=== PATIENT | female | born 1965 | race Caucasian/White ===

== ENCOUNTER 2016-07-05 09:51 | Outpatient (CLI) | payer OTHER ==
[2016-07-05 11:22] LABS: ALT (SGPT) 18 U/L (0-55); AST (SGOT) 15 U/L (5-34); Alkaline Phosphatase 84 U/L (40-150); Anion Gap 16 mmol/L (10-20); BUN (Urea Nitrogen) 10 mg/dL (7.0-18.7); Bilirubin, Total 0.3 mg/dL (0.2-1.2); Calc. Creatinine Clearance 0 mL/min (70-130); Calcium 9.4 mg/dL (7.8-10.44); Carbon Dioxide 30 mmol/L (22-29); Chloride 97 mmol/L (98-107); Estimated GFR-MDRD 90; Globulin 3.2 g/dL (2.4-3.5); LDL Cholesterol, Calculated 103 mg/dL
[2016-07-05 12:15] LABS: #Basophils 0.1 thou/uL (0.0-0.2); #Eosinphils 0.2 thou/uL (0.0-0.7); #Lymphocytes 2.6 thou/uL (1.20-3.40); #Monocytes 0.6 thou/uL (0.11-0.59); %Basophils 0.9 % (0.0-1.0); %Eosinophils 1.9 % (0.0-10.0); %Monocytes 6.6 % (0.0-10.0); Hematocrit 44.6 % (36.0-47.0); Mean Platelet Volume 8.4 fL (7.4-10.4); Red Blood Cell (RBC) Count 4.73 mill/uL (4.20-5.40); White Blood Cell (WBC) Count 8.3 thou/uL (4.8-10.8)
[2016-07-05 12:33] LABS: Hemoglobin A1c 10.1 % (4.0-6.0)
== END 2016-07-05 09:52 | disposition home or self-care (01) ==
LOC: HPCALD 09:51
PROVIDERS: ATTEND Family Medicine
DX: Z13.6 Encounter for screening for cardiovascular disorders (principal); E11.9 Type 2 diabetes mellitus without complications; I10 Essential (primary) hypertension
CPT/HCPCS: 36415; 80053; 80061; 83036; 85025

== ENCOUNTER 2016-12-31 08:32 | Emergency (ER) | payer OTHER ==
[2016-12-31] MEDS ORDERED: HYDROcodone/Acetaminophen 10/325 mg Tablet ONE (09:05)
== END 2016-12-31 09:28 | disposition home or self-care (01) ==
LOC: BURERS 08:32
DX: G89.29 Other chronic pain (principal); M54.5 Low back pain; E66.9 Obesity, unspecified; I11.0 Hypertensive heart disease with heart failure; I50.9 Heart failure, unspecified; M06.9 Rheumatoid arthritis, unspecified; J44.9 Chronic obstructive pulmonary disease, unspecified; E11.9 Type 2 diabetes mellitus without complications; Z86.73 Personal history of transient ischemic attack (TIA), and cerebral infarction without residual deficits; F17.210 Nicotine dependence, cigarettes, uncomplicated; Z79.899 Other long term (current) drug therapy; Z79.84 Long term (current) use of oral hypoglycemic drugs
CPT/HCPCS: 99283

== ENCOUNTER 2017-01-27 14:14 | Emergency (ER) | payer OTHER | END 2017-01-27 14:42 | disposition home or self-care (01) | LOC: BURERS 14:14 | DX: N32.0 Bladder-neck obstruction (principal); I11.0 Hypertensive heart disease with heart failure; I50.9 Heart failure, unspecified; E11.9 Type 2 diabetes mellitus without complications; M81.0 Age-related osteoporosis without current pathological fracture; M06.9 Rheumatoid arthritis, unspecified; E66.9 Obesity, unspecified; J44.9 Chronic obstructive pulmonary disease, unspecified; F17.210 Nicotine dependence, cigarettes, uncomplicated; Z79.4 Long term (current) use of insulin; Z79.84 Long term (current) use of oral hypoglycemic drugs; Z79.891 Long term (current) use of opiate analgesic; Z79.899 Other long term (current) drug therapy | CPT/HCPCS: 99283 ==

== ENCOUNTER 2017-02-01 15:47 | Emergency (ER) | payer OTHER ==
--- NOTE | 2017-02-01 18:17 | CT ---
CT SOFT TISSUE NECK WITH CONTRAST 02/01/[address] of the neck was performed for evaluation of a left sided palpable abnormality. the patient also presents with dysphagia. There has been a prior left thyroidectomy. Axial slices were acquired , then coronal and sagittal reconstructions were done. An opaque marker was placed over the palpable site of interest. It correlates with the left submandi bular gland. Both submandibular glands are generous in size, though it would be difficult to say ghada t the one on the left is tremendously larger than the right. No true mass, substantial adenopathy or other finding of severe concern was encountered. The prevertebral soft tissues appear normal. The s uperior mediastinum was unremarkable. There were no reasons that would easily explain dysphagia. IMPRESSION: No acute pathological findings. The area of palpable interest appears to be a prominent left submand ibular gland. POS: HOME
== END 2017-02-01 17:13 | disposition home or self-care (01) ==
LOC: BURERS 15:47
DX: R07.0 Pain in throat (principal); E11.9 Type 2 diabetes mellitus without complications; E66.9 Obesity, unspecified; F17.210 Nicotine dependence, cigarettes, uncomplicated; I11.0 Hypertensive heart disease with heart failure; J44.9 Chronic obstructive pulmonary disease, unspecified; I25.2 Old myocardial infarction; I50.9 Heart failure, unspecified; M81.0 Age-related osteoporosis without current pathological fracture; M06.9 Rheumatoid arthritis, unspecified; Z86.73 Personal history of transient ischemic attack (TIA), and cerebral infarction without residual deficits; Z79.84 Long term (current) use of oral hypoglycemic drugs; Z79.4 Long term (current) use of insulin; Z79.899 Other long term (current) drug therapy
CPT/HCPCS: 70492

== ENCOUNTER → 2017-02-07 | Day surgery (SDC) | payer OTHER ==
[2017-02-07 17:38] VITALS: BP 111/59; TEMP 98.2
== END ==
LOC: BUR/OP 12:22
PROVIDERS: ATTEND Family Medicine
DX: Z46.6 Encounter for fitting and adjustment of urinary device (principal); E11.65 Type 2 diabetes mellitus with hyperglycemia; M06.9 Rheumatoid arthritis, unspecified; J44.9 Chronic obstructive pulmonary disease, unspecified; E66.9 Obesity, unspecified; I11.0 Hypertensive heart disease with heart failure; I50.30 Unspecified diastolic (congestive) heart failure; M81.0 Age-related osteoporosis without current pathological fracture; M51.27 Other intervertebral disc displacement, lumbosacral region; I25.2 Old myocardial infarction; I25.10 Atherosclerotic heart disease of native coronary artery without angina pectoris; F17.210 Nicotine dependence, cigarettes, uncomplicated; Z68.43 Body mass index [BMI] 50.0-59.9, adult; Z79.84 Long term (current) use of oral hypoglycemic drugs; Z79.4 Long term (current) use of insulin; Z79.52 Long term (current) use of systemic steroids; Z79.899 Other long term (current) drug therapy; Z88.6 Allergy status to analgesic agent; Z88.0 Allergy status to penicillin; Z88.8 Allergy status to other drugs, medicaments and biological substances; Z91.018 Allergy to other foods; Z98.51 Tubal ligation status; Z90.710 Acquired absence of both cervix and uterus; Z98.890 Other specified postprocedural states; Z86.73 Personal history of transient ischemic attack (TIA), and cerebral infarction without residual deficits
CPT/HCPCS: 51702; 99201; G0463

== ENCOUNTER → 2017-02-26 | Day surgery (SDC) | payer OTHER | LOC: BUR/OP 08:55 | PROVIDERS: ATTEND Family Medicine | DX: Z46.6 Encounter for fitting and adjustment of urinary device (principal); R53.81 Other malaise; M81.0 Age-related osteoporosis without current pathological fracture; E66.01 Morbid (severe) obesity due to excess calories; J44.9 Chronic obstructive pulmonary disease, unspecified; I11.0 Hypertensive heart disease with heart failure; I50.32 Chronic diastolic (congestive) heart failure; I25.2 Old myocardial infarction; I25.10 Atherosclerotic heart disease of native coronary artery without angina pectoris; E89.0 Postprocedural hypothyroidism; F17.210 Nicotine dependence, cigarettes, uncomplicated; E11.42 Type 2 diabetes mellitus with diabetic polyneuropathy; F41.8 Other specified anxiety disorders; R33.9 Retention of urine, unspecified; G89.4 Chronic pain syndrome; Z68.42 Body mass index [BMI] 45.0-49.9, adult; Z79.4 Long term (current) use of insulin; Z79.891 Long term (current) use of opiate analgesic; Z79.899 Other long term (current) drug therapy; Z88.6 Allergy status to analgesic agent; Z88.5 Allergy status to narcotic agent; Z88.0 Allergy status to penicillin; Z88.8 Allergy status to other drugs, medicaments and biological substances; Z91.018 Allergy to other foods; Z99.3 Dependence on wheelchair; Z98.1 Arthrodesis status; Z98.51 Tubal ligation status; Z90.710 Acquired absence of both cervix and uterus; Z98.890 Other specified postprocedural states; Z86.73 Personal history of transient ischemic attack (TIA), and cerebral infarction without residual deficits | CPT/HCPCS: 51701; 99201; G0463 ==

== ENCOUNTER → 2017-03-02 | Day surgery (SDC) | payer OTHER | LOC: BUR/OP 10:36 | PROVIDERS: ATTEND Family Medicine | DX: Z46.6 Encounter for fitting and adjustment of urinary device (principal); R33.9 Retention of urine, unspecified; R53.81 Other malaise; M81.0 Age-related osteoporosis without current pathological fracture; E66.01 Morbid (severe) obesity due to excess calories; J44.9 Chronic obstructive pulmonary disease, unspecified; I11.0 Hypertensive heart disease with heart failure; I50.32 Chronic diastolic (congestive) heart failure; I25.2 Old myocardial infarction; I25.10 Atherosclerotic heart disease of native coronary artery without angina pectoris; E89.0 Postprocedural hypothyroidism; F17.210 Nicotine dependence, cigarettes, uncomplicated; E11.42 Type 2 diabetes mellitus with diabetic polyneuropathy; F41.8 Other specified anxiety disorders; G89.4 Chronic pain syndrome; Z68.42 Body mass index [BMI] 45.0-49.9, adult; Z79.4 Long term (current) use of insulin; Z79.891 Long term (current) use of opiate analgesic; Z79.899 Other long term (current) drug therapy; Z88.6 Allergy status to analgesic agent; Z88.5 Allergy status to narcotic agent; Z88.0 Allergy status to penicillin; Z88.8 Allergy status to other drugs, medicaments and biological substances; Z91.018 Allergy to other foods; Z99.3 Dependence on wheelchair; Z98.1 Arthrodesis status; Z98.51 Tubal ligation status; Z90.710 Acquired absence of both cervix and uterus; Z98.890 Other specified postprocedural states; Z86.73 Personal history of transient ischemic attack (TIA), and cerebral infarction without residual deficits | CPT/HCPCS: 51701; 99201; G0463 ==

== ENCOUNTER 2017-03-03 16:59 | Emergency (ER) | payer OTHER ==
[~2017-03-03 16:59] MED LIST: Iopamidol 370 76% 100 ML VIAL ONE
[2017-03-03] MEDS ORDERED: Fentanyl 100 MCG/2 ML VIAL ONE (17:25)
[2017-03-03] MEDS ORDERED: Ketorolac Tromethamine 30 MG/ML VIAL ONE (17:25)
[2017-03-03 17:40] LABS: #Basophils 0.2 thou/uL (0.0-0.2); #Eosinphils 0.2 thou/uL (0.0-0.7); #Lymphocytes 3.2 thou/uL (1.20-3.40); #Monocytes 1.1 thou/uL (0.11-0.59); #Neutrophils 12.9 thou/uL (1.40-6.50); %Basophils 0.9 % (0.0-1.0); %Eosinophils 1.1 % (0.0-10.0); %Monocytes 6.3 % (0.0-10.0); %Neutrophils 73.7 % (42.0-75.0); Hemoglobin 16.1 g/dL (12.0-16.0); Mean Corpuscular HGB CONC 33.5 g/dL (32.0-36.0); Mean Corpuscular Hemoglobin 29.8 pg (27.0-31.0); Mean Platelet Volume 9.1 fL (7.4-10.4); Platelet Count 257 thou/uL (130-400); RBC Distribution Width 12.9 % (11.5-14.5); Red Blood Cell (RBC) Count 5.41 mill/uL (4.20-5.40); White Blood Cell (WBC) Count 17.6 thou/uL (4.8-10.8)
[2017-03-03 17:52] LABS: ALT (SGPT) 15 U/L (8-55); Albumin 4.1 g/dL (3.5-5.0); Alkaline Phosphatase 104 U/L (40-150); Anion Gap 20 mmol/L (10-20); BUN (Urea Nitrogen) 10 mg/dL (9.8-20.1); Bilirubin, Total 0.6 mg/dL (0.2-1.2); Calc. Creatinine Clearance 0 mL/min (70-130); Calcium 11.4 mg/dL (7.8-10.44); Carbon Dioxide 26 mmol/L (22-29); Chloride 96 mmol/L (98-107); Estimated GFR-MDRD 88; Globulin 4.7 g/dL (2.4-3.5); Glucose 252 mg/dL (70-105); Lipase 93 U/L (8-78); Potassium 4.3 mmol/L (3.5-5.1); Protein, Total 8.8 g/dL (6.0-8.3); Sodium 138 mmol/L (136-145)
[2017-03-03 17:53] LABS: AST (SGOT) 14 U/L (5-34); CKMB 0.4 ng/mL (0-6.6); Troponin I Less than 0.010 ng/mL (< 0.028)
[2017-03-03 18:20] LABS: Bilirubin Small (Negative); Blood, Urine Moderate (Negative); Clarity Cloudy (Clear); Glucose, Urine (Dipstick) Negative (Negative); Leukocyte Small (Negative); Nitrite Negative (Negative); Protein, Urine (Dipstick) > or equal to 300 mg/dL (Neg-Trace); Specific Gravity, Urine 1.015 (1.005-1.030); Urobilinogen 0.2 mg/dL (0.2-1.0); pH, Urine 6.5 (5.0-9.0)
[2017-03-03 18:27] LABS: Bacteria/HPF Rare-Few HPF (None Seen); Crystals/HPF None Seen HPF (Negative); Hyaline Casts/LPF NONE SEEN LPF (0-3 Hyaline); Other Casts/LPF None Seen LPF (0-3 Hyaline); Oval Fat Bodies/HPF None Seen HPF (None Seen); RBC/HPF 21-50 HPF (0-3); Renal Epithelial None Seen HPF (0-3); Sperm/HPF None Seen HPF (None Seen); Squamous Epithelial None Seen HPF (0-3); Transitional Epithelial NONE SEEN HPF (0-3); Trichomonas/HPF None Seen HPF (None Seen); Yeast-All Forms 4+ HPF (None Seen)
--- NOTE | 2017-03-03 18:40 | CT ---
CT ABDOMEN AND PELVIS WITH IV CONTRAST: 03/03/17 HISTORY: Abdominal pain, most severe in the right upper quadrant. FINDINGS: The lung bases are clear. The liver, spleen, adrenal glands and left kidney are normal. There is a n onobstructing 5 mm calculus in the central portion of the right kidney. A tiny cyst is seen in the r ight kidney. No hydroureteronephrosis is seen on either side. No calculi is seen in the ureters or t he urinary bladder. There is a Borjas catheter within the decompressed urinary bladder. There is mild inflammatory change surrounding the head of the pancreas. No calcified gallstones are seen. No free air, free fluid or lymphadenopathy is noted in the abdome n or pelvis. There are vascular calcifications without evidence of aneurysmal dilatation of the abdo rhonda aorta. A neural stimulator device is seen posteriorly in the subcutaneous fat on the right at the level of the upper lumbar spine. There is a screw at L5. The patient is post hysterectomy. There are vascular calcifications without evidence of aneurysmal dilatation of the abdominal aorta. There are degenerative changes in the spine. IMPRESSION: 1. Probable pancreatitis. 2. Nonobstructing 5 mm right renal calculus. POS: [facility]
[2017-03-03] MEDS ORDERED: Famotidine In NaCl 20 mg/50 ml Premix Bag ONE (18:41)
== END 2017-03-03 19:13 | disposition short-term general hospital (02) ==
LOC: BURERS 16:59
DX: K81.0 Acute cholecystitis (principal); K85.90 Acute pancreatitis without necrosis or infection, unspecified; E11.9 Type 2 diabetes mellitus without complications; I11.0 Hypertensive heart disease with heart failure; I50.9 Heart failure, unspecified; E66.9 Obesity, unspecified; J44.9 Chronic obstructive pulmonary disease, unspecified; M81.0 Age-related osteoporosis without current pathological fracture; F17.210 Nicotine dependence, cigarettes, uncomplicated; Z86.73 Personal history of transient ischemic attack (TIA), and cerebral infarction without residual deficits
CPT/HCPCS: 74177; 80053; 81003; 81015; 82553; 83690; 84484; 85025; 87086; 96361; 96365; 96375; A4216; J1170; J1885; J1956; J3010

== ENCOUNTER → 2017-03-12 | Day surgery (SDC) | payer OTHER ==
[2017-03-12 19:03] VITALS: BP 140/88; TEMP 98.9
== END ==
LOC: BUR/OP 18:07
PROVIDERS: ATTEND Family Medicine
DX: Z46.6 Encounter for fitting and adjustment of urinary device (principal); R53.81 Other malaise; E11.9 Type 2 diabetes mellitus without complications; M81.0 Age-related osteoporosis without current pathological fracture; E66.01 Morbid (severe) obesity due to excess calories; J44.9 Chronic obstructive pulmonary disease, unspecified; I11.0 Hypertensive heart disease with heart failure; I50.32 Chronic diastolic (congestive) heart failure; I25.2 Old myocardial infarction; I25.10 Atherosclerotic heart disease of native coronary artery without angina pectoris; E89.0 Postprocedural hypothyroidism; F32.9 Major depressive disorder, single episode, unspecified; F41.9 Anxiety disorder, unspecified; F17.210 Nicotine dependence, cigarettes, uncomplicated; G89.4 Chronic pain syndrome; Z79.2 Long term (current) use of antibiotics; Z79.4 Long term (current) use of insulin; Z79.899 Other long term (current) drug therapy; Z88.6 Allergy status to analgesic agent; Z88.0 Allergy status to penicillin; Z88.8 Allergy status to other drugs, medicaments and biological substances; Z91.018 Allergy to other foods; Z99.3 Dependence on wheelchair; Z98.1 Arthrodesis status; Z98.51 Tubal ligation status; Z90.710 Acquired absence of both cervix and uterus; Z98.890 Other specified postprocedural states; Z87.440 Personal history of urinary (tract) infections; Z86.73 Personal history of transient ischemic attack (TIA), and cerebral infarction without residual deficits
CPT/HCPCS: 51701; 99201; G0463

== ENCOUNTER → 2017-03-20 | Day surgery (SDC) | payer OTHER ==
[2017-03-20 18:51] VITALS: BP 134/93; TEMP 98.3
== END ==
LOC: BUR/OP 10:41
PROVIDERS: ATTEND Family Medicine
DX: R33.9 Retention of urine, unspecified (principal); I11.0 Hypertensive heart disease with heart failure; I50.32 Chronic diastolic (congestive) heart failure; I25.10 Atherosclerotic heart disease of native coronary artery without angina pectoris; I25.2 Old myocardial infarction; J44.9 Chronic obstructive pulmonary disease, unspecified; M81.0 Age-related osteoporosis without current pathological fracture; E11.9 Type 2 diabetes mellitus without complications; F17.210 Nicotine dependence, cigarettes, uncomplicated; E89.0 Postprocedural hypothyroidism; E66.01 Morbid (severe) obesity due to excess calories; Z88.6 Allergy status to analgesic agent; Z88.8 Allergy status to other drugs, medicaments and biological substances; Z91.018 Allergy to other foods; Z79.84 Long term (current) use of oral hypoglycemic drugs; Z79.899 Other long term (current) drug therapy; Z98.51 Tubal ligation status; Z98.1 Arthrodesis status; Z98.890 Other specified postprocedural states; Z90.710 Acquired absence of both cervix and uterus; Z86.73 Personal history of transient ischemic attack (TIA), and cerebral infarction without residual deficits; Z99.3 Dependence on wheelchair
CPT/HCPCS: 51701; 99201; A4353; G0463

== ENCOUNTER 2017-03-28 11:38 | Emergency (ER) | payer OTHER | END 2017-03-28 12:06 | disposition home or self-care (01) | LOC: BURERS 11:38 | DX: Z46.6 Encounter for fitting and adjustment of urinary device (principal); I11.0 Hypertensive heart disease with heart failure; I50.9 Heart failure, unspecified; E11.9 Type 2 diabetes mellitus without complications; M81.0 Age-related osteoporosis without current pathological fracture; M06.9 Rheumatoid arthritis, unspecified; E66.9 Obesity, unspecified; J44.9 Chronic obstructive pulmonary disease, unspecified; I25.2 Old myocardial infarction; F17.210 Nicotine dependence, cigarettes, uncomplicated; Z86.73 Personal history of transient ischemic attack (TIA), and cerebral infarction without residual deficits ==

== ENCOUNTER 2017-04-02 11:40 | Outpatient (CLI) | payer OTHER ==
--- NOTE | 2017-04-02 16:02 | RAD ---
THREE VIEWS LUMBAR SPINE: History: Low back pain. Previous lumbar surgery. Comparison: None. FINDINGS: There is a single screw projecting over the L5 vertebral body. Dorsum column stimulator is identifie d entering the thecal sac at approximately T12-L1 level. There are five lumbar type vertebral bodies . Lumbar spine vertebral body height is maintained. No fracture. Mild loss of disc space height and osteophyte formation. IMPRESSION: 1. Post-surgical changes as above. 2. Mild degenerative changes. POS: [facility]
== END 2017-04-02 11:41 | disposition home or self-care (01) ==
LOC: BURRAD 11:40
PROVIDERS: ATTEND Anesthesiology Pain Medicine
DX: M54.5 Low back pain (principal); M47.896 Other spondylosis, lumbar region; Z98.890 Other specified postprocedural states
CPT/HCPCS: 72100

== ENCOUNTER 2017-04-09 19:33 | Emergency (ER) | payer OTHER ==
[2017-04-09] MEDS ORDERED: Lidocaine 1% w/Epinephrine 1:100K 30 ML VIAL ONE (19:44)
[2017-04-09] MEDS ORDERED: Adacel (T-DAP) 0.5 ML VIAL ONE (19:58)
[2017-04-09] MEDS ORDERED: Sulfameth/Trimethoprim DS 800-160mg TAB ONE (20:07)
[2017-04-09] MEDS ORDERED: Bacitracin Zinc 1 Packet ONE (20:09)
== END 2017-04-09 20:23 | disposition home or self-care (01) ==
LOC: BURERS 19:33
DX: S81.812A Laceration without foreign body, left lower leg, initial encounter (principal); E11.9 Type 2 diabetes mellitus without complications; I11.0 Hypertensive heart disease with heart failure; I50.9 Heart failure, unspecified; J44.9 Chronic obstructive pulmonary disease, unspecified; F17.210 Nicotine dependence, cigarettes, uncomplicated; X58.XXXA Exposure to other specified factors, initial encounter
CPT/HCPCS: 12002; 90471; 90715; J2001

== ENCOUNTER → 2017-04-09 | Day surgery (SDC) | payer OTHER | LOC: BUR/OP 11:21 | PROVIDERS: ATTEND Family Medicine | DX: Z46.6 Encounter for fitting and adjustment of urinary device (principal); E11.9 Type 2 diabetes mellitus without complications; I10 Essential (primary) hypertension; M81.0 Age-related osteoporosis without current pathological fracture; R53.81 Other malaise; E66.01 Morbid (severe) obesity due to excess calories; J44.9 Chronic obstructive pulmonary disease, unspecified; I50.32 Chronic diastolic (congestive) heart failure; I25.10 Atherosclerotic heart disease of native coronary artery without angina pectoris; I25.2 Old myocardial infarction; E89.0 Postprocedural hypothyroidism; F41.8 Other specified anxiety disorders; F17.210 Nicotine dependence, cigarettes, uncomplicated; G89.4 Chronic pain syndrome; Z99.3 Dependence on wheelchair; Z79.2 Long term (current) use of antibiotics; Z79.4 Long term (current) use of insulin; Z79.899 Other long term (current) drug therapy; Z88.6 Allergy status to analgesic agent; Z88.0 Allergy status to penicillin; Z88.5 Allergy status to narcotic agent; Z88.8 Allergy status to other drugs, medicaments and biological substances; Z91.018 Allergy to other foods; Z98.1 Arthrodesis status; Z98.51 Tubal ligation status; Z90.710 Acquired absence of both cervix and uterus; Z98.890 Other specified postprocedural states; Z86.73 Personal history of transient ischemic attack (TIA), and cerebral infarction without residual deficits | CPT/HCPCS: 51701; 99201; G0463 ==

== ENCOUNTER 2017-05-14 15:22 | Outpatient (CLI) | payer OTHER ==
--- NOTE | 2017-05-14 20:45 | CT ---
CT LUMBAR SPINE: Date: 05-14-[address] of the lumbar spine was performed for evaluation of pain. Axial slices were acquired and th en coronal and sagittal reconstructions were done. FINDINGS: There has been a prior surgical procedure with insertion of a screw into the L5 vertebral body anteri humberto. The top of the screw protrudes into the disc space and partially into the inferior endplate of L4 anteriorly. There is loss of the L4-5 disc space as a result. There is slight curvature of the lum bar spine convex left. An incidental finding on the surrounding soft tissues was a small nonobstructi ng calculus in the right kidney. No fracture or dislocation is seen at any lumbar level. The patient has an epidural stimulator in [facility] that enters about the T12-L1 level and ascends from there. Findings by level follow: T11-12: No acute findings. There is some scarring in the right lower lobe medially at this level. T12-L1: No acute findings. L1-2: Anterior and lateral osteophytes that do not involve the spinal canal. There is no central pearl l or foraminal stenosis. L2-3: Minimal concentric bulge of the disc without focal herniation. L3-4: There is some mild crowding of the thecal sac due to mild concentric disc bulge, mild ligamento us and facet hypertrophy. No foraminal stenosis was seen. L4-5: Probably some slight foraminal stenosis on the right side. No central canal stenosis. Degenerat ed disc at this level. L5-S1: No acute findings. Some mild facet arthritis is present. IMPRESSION: Degenerative and post-surgical changes as noted above. No findings that appear acute. POS: HOME
== END 2017-05-14 15:23 | disposition home or self-care (01) ==
LOC: BURCT 15:22
PROVIDERS: ATTEND Anesthesiology Pain Medicine
DX: M96.1 Postlaminectomy syndrome, not elsewhere classified (principal); M62.830 Muscle spasm of back; M47.26 Other spondylosis with radiculopathy, lumbar region; G89.4 Chronic pain syndrome
CPT/HCPCS: 72131

== ENCOUNTER 2017-06-25 20:47 | Emergency (ER) | payer OTHER ==
[2017-06-25 22:01] LABS: Bilirubin Negative (Negative); Blood, Urine Large (Negative); Clarity Slightly Cloudy (Clear); Glucose, Urine (Dipstick) Negative (Negative); Leukocyte Small (Negative); Nitrite Negative (Negative); Protein, Urine (Dipstick) 100 mg/dL (Neg-Trace); Urobilinogen 0.2 mg/dL (0.2-1.0); pH, Urine 8.5 (5.0-9.0)
[2017-06-25 22:07] LABS: RBC/HPF GREATER THAN 50-TNTC HPF (0-3)
[2017-06-25 22:08] LABS: Bacteria/HPF 1+ HPF (None Seen); Squamous Epithelial None Seen HPF (0-3)
== END 2017-06-25 22:00 | disposition home or self-care (01) ==
LOC: BURERS 20:47
DX: T83.091A Other mechanical complication of indwelling urethral catheter, initial encounter (principal); I11.0 Hypertensive heart disease with heart failure; I50.9 Heart failure, unspecified; E11.9 Type 2 diabetes mellitus without complications; M81.0 Age-related osteoporosis without current pathological fracture; M06.9 Rheumatoid arthritis, unspecified; E66.9 Obesity, unspecified; J44.9 Chronic obstructive pulmonary disease, unspecified; I25.2 Old myocardial infarction; F17.210 Nicotine dependence, cigarettes, uncomplicated; Z86.73 Personal history of transient ischemic attack (TIA), and cerebral infarction without residual deficits
CPT/HCPCS: 51702; 81003; 81015; 87077; 87086

== ENCOUNTER 2017-11-19 12:54 | Emergency (ER) | payer OTHER | END 2017-11-19 13:30 | disposition home or self-care (01) | LOC: BURERS 12:54 | DX: T83.038A Leakage of other urinary catheter, initial encounter (principal); E11.9 Type 2 diabetes mellitus without complications; I11.0 Hypertensive heart disease with heart failure; I50.9 Heart failure, unspecified; M81.0 Age-related osteoporosis without current pathological fracture; E66.9 Obesity, unspecified; J44.9 Chronic obstructive pulmonary disease, unspecified; Z86.73 Personal history of transient ischemic attack (TIA), and cerebral infarction without residual deficits; I25.2 Old myocardial infarction; F17.210 Nicotine dependence, cigarettes, uncomplicated | CPT/HCPCS: 99283 ==

== ENCOUNTER 2018-03-01 12:49 | Outpatient (CLI) | payer OTHER ==
--- NOTE | 2018-03-02 07:23 | RAD ---
LEFT HIP: DATE: 03/01/2018. FINDINGS: No fracture, dislocation, or joint space narrowing was seen. The articular surfaces are smooth. IMPRESSION: No acute findings. POS: HOME
== END 2018-03-01 12:50 | disposition home or self-care (01) ==
LOC: BURRAD 12:49
PROVIDERS: ATTEND Anesthesiology Pain Medicine
DX: M25.552 Pain in left hip (principal)

== ENCOUNTER 2018-04-26 13:45 | Emergency (ER) | payer OTHER | END 2018-04-26 13:58 | disposition home or self-care (01) | LOC: BURERS 13:45 | DX: Z46.6 Encounter for fitting and adjustment of urinary device (principal); I10 Essential (primary) hypertension; M06.9 Rheumatoid arthritis, unspecified; I25.2 Old myocardial infarction; F17.210 Nicotine dependence, cigarettes, uncomplicated; Z86.73 Personal history of transient ischemic attack (TIA), and cerebral infarction without residual deficits | CPT/HCPCS: 99283 ==

== ENCOUNTER 2018-08-13 14:21 | Emergency (ER) | payer OTHER | END 2018-08-13 14:56 | disposition home or self-care (01) | LOC: BURERS 14:21 | DX: T83.038A Leakage of other urinary catheter, initial encounter (principal); E11.9 Type 2 diabetes mellitus without complications; M06.9 Rheumatoid arthritis, unspecified; E66.9 Obesity, unspecified; I11.0 Hypertensive heart disease with heart failure; I25.2 Old myocardial infarction; I50.9 Heart failure, unspecified; F17.210 Nicotine dependence, cigarettes, uncomplicated; Z86.73 Personal history of transient ischemic attack (TIA), and cerebral infarction without residual deficits | CPT/HCPCS: 99283 ==

== ENCOUNTER 2018-11-07 13:39 | Emergency (ER) | payer OTHER ==
[2018-11-07] MEDS ORDERED: Iopamidol 370 76% 100 ML VIAL ONE (14:01)
[2018-11-07 14:08] LABS: #Basophils 0.1 thou/uL (0.0-0.2); #Eosinphils 0.1 thou/uL (0.0-0.7); #Lymphocytes 2.7 thou/uL (1.20-3.40); #Monocytes 0.7 thou/uL (0.11-0.59); %Basophils 1.2 % (0.0-1.0); %Eosinophils 1.4 % (0.0-10.0); %Lymphocytes 31.8 % (21.0-51.0); %Monocytes 7.8 % (0.0-10.0); %Neutrophils 57.7 % (42.0-75.0); Hemoglobin 13.9 g/dL (12.0-16.0); Mean Corpuscular HGB CONC 31.8 g/dL (32.0-36.0); Mean Corpuscular Hemoglobin 28.9 pg (27.0-31.0); Mean Platelet Volume 8.6 fL (7.4-10.4); Platelet Count 194 thou/uL (130-400); RBC Distribution Width 13.7 % (11.5-14.5); Red Blood Cell (RBC) Count 4.82 mill/uL (4.20-5.40); White Blood Cell (WBC) Count 8.6 thou/uL (4.8-10.8)
[2018-11-07] MEDS ORDERED: Fentanyl 100 MCG/2 ML VIAL ONE (14:09)
[2018-11-07 14:13] LABS: Bilirubin Negative (Negative); Blood, Urine Large (Negative); Clarity Turbid (Clear); Glucose, Urine (Dipstick) >=1000 mg/dL (Negative); Leukocyte Small (Negative); Nitrite Positive (Negative); Protein, Urine (Dipstick) 100 mg/dL (Neg-Trace); Specific Gravity, Urine 1.025 (1.005-1.030); Urobilinogen 0.2 mg/dL (0.2-1.0)
[2018-11-07 14:21] LABS: Bacteria/HPF 4+ HPF (None Seen); Renal Epithelial None Seen HPF (0-3); Squamous Epithelial None Seen HPF (0-3); Transitional Epithelial NONE SEEN HPF (0-3)
[2018-11-07 14:22] LABS: Crystals/HPF 2+ AMORPH URATES HPF (Negative); Hyaline Casts/LPF NONE SEEN LPF (0-3 Hyaline); Other Casts/LPF None Seen LPF (0-3 Hyaline); Trichomonas/HPF None Seen HPF (None Seen); Yeast-All Forms None Seen HPF (None Seen)
[2018-11-07 14:26] LABS: ALT (SGPT) 17 U/L (8-55); AST (SGOT) 13 U/L (5-34); Albumin 4.1 g/dL (3.5-5.0); Alkaline Phosphatase 85 U/L (40-150); Anion Gap 17 mmol/L (10-20); BUN (Urea Nitrogen) 15 mg/dL (9.8-20.1); Bilirubin, Total 0.3 mg/dL (0.2-1.2); Calc. Creatinine Clearance 0 mL/min (70-130); Calcium 10.6 mg/dL (7.8-10.44); Carbon Dioxide 23 mmol/L (22-29); Chloride 102 mmol/L (98-107); Estimated GFR-MDRD 85; Globulin 3.3 g/dL (2.4-3.5); Glucose 267 mg/dL (70-105); Lipase 13 U/L (8-78); Potassium 4.1 mmol/L (3.5-5.1); Protein, Total 7.4 g/dL (6.0-8.3); Sodium 138 mmol/L (136-145)
--- NOTE | 2018-11-07 14:48 | CT ---
CT Abdomen Pelvis W Con History: Right lower quadrant pain Comparison: CT abdomen and pelvis 2017 Findings: There is abnormal thickening of the skin and the inferior margin of the right breast. The l nancy bases are clear. No pericardial effusion. There is right hydroureteronephrosis due to the tip of the suprapubic catheter lodged within the dist al ureter has passed ureterovesicular junction 3-4 mm. No dilated loops of large or small bowel. Left kidney is unremarkable. Aortoiliac contour is normal. No retroperitoneal periaortic adenopathy. Liver and gallbladder are normal as well as the pancreas and adrenal glands. No acute osseous abnorma lity. Impression: 1. The suprapubic catheter tip is lodged in the right distal ureter causing moderate right hydrourete ronephrosis. Recommend retrograde instillation of saline through the urinary bladder to decompress the tip from the ureterovesicular junction. 2. Abnormal skin and subcutaneous fat thickening inferior margin the right breast. Clinical correlati on advised. Dynastic mammogram may be beneficial in this patient. Findings discussed with ordering provider at 2:42 PM.
== END 2018-11-07 15:09 | disposition home or self-care (01) ==
LOC: BURERS 13:39
DX: T83.091A Other mechanical complication of indwelling urethral catheter, initial encounter (principal); E11.9 Type 2 diabetes mellitus without complications; I11.0 Hypertensive heart disease with heart failure; I50.9 Heart failure, unspecified; M81.0 Age-related osteoporosis without current pathological fracture; J44.9 Chronic obstructive pulmonary disease, unspecified; Z86.73 Personal history of transient ischemic attack (TIA), and cerebral infarction without residual deficits; I25.2 Old myocardial infarction; F17.210 Nicotine dependence, cigarettes, uncomplicated; Z79.4 Long term (current) use of insulin; Z79.899 Other long term (current) drug therapy
CPT/HCPCS: 36415; 74177; 80053; 81003; 81015; 83605; 83690; 85025; 87077; 87086; 87186; 96374; J3010; Q9967

== ENCOUNTER 2018-12-23 19:08 | Emergency (ER) | payer OTHER ==
[2018-12-23] MEDS ORDERED: Adacel (T-DAP) 0.5 ML SYRINGE ONE (19:29)
[2018-12-23] MEDS ORDERED: Sulfameth/Trimethoprim DS 800-160mg TAB ONE (19:51)
== END 2018-12-23 21:07 | disposition home or self-care (01) ==
LOC: BURERS 19:08
DX: S80.861A Insect bite (nonvenomous), right lower leg, initial encounter (principal); E11.9 Type 2 diabetes mellitus without complications; I11.0 Hypertensive heart disease with heart failure; I50.9 Heart failure, unspecified; M81.0 Age-related osteoporosis without current pathological fracture; E66.9 Obesity, unspecified; J44.9 Chronic obstructive pulmonary disease, unspecified; Z86.73 Personal history of transient ischemic attack (TIA), and cerebral infarction without residual deficits; I25.2 Old myocardial infarction; F17.210 Nicotine dependence, cigarettes, uncomplicated; Z79.899 Other long term (current) drug therapy; Z79.84 Long term (current) use of oral hypoglycemic drugs; Z79.4 Long term (current) use of insulin; W57.XXXA Bitten or stung by nonvenomous insect and other nonvenomous arthropods, initial encounter
CPT/HCPCS: 87070; 87077; 87186; 87205; 90471; 90715

== ENCOUNTER 2018-12-25 18:16 | Emergency (ER) | payer OTHER ==
[2018-12-25] MEDS ORDERED: HYDROcodone/Acetaminophen 10/325 mg Tablet ONE (18:46)
--- NOTE | 2018-12-26 07:27 | RAD ---
LEFT HIP 2 VIEWS: Date: 12/25/18 Comparison made with a 03/01/18 study. There has been no adverse interval change. No fracture, dislocation, or joint space narrowing seen. T he articular surfaces are smooth. IMPRESSION: No acute findings. POS: HOME
== END 2018-12-25 19:35 | disposition home or self-care (01) ==
LOC: BURERS 18:16
DX: S73.102A Unspecified sprain of left hip, initial encounter (principal); I10 Essential (primary) hypertension; E11.9 Type 2 diabetes mellitus without complications; M81.0 Age-related osteoporosis without current pathological fracture; E66.9 Obesity, unspecified; J44.9 Chronic obstructive pulmonary disease, unspecified; Z86.73 Personal history of transient ischemic attack (TIA), and cerebral infarction without residual deficits; I25.2 Old myocardial infarction; F17.210 Nicotine dependence, cigarettes, uncomplicated; Z79.4 Long term (current) use of insulin; Z79.899 Other long term (current) drug therapy; W05.0XXA Fall from non-moving wheelchair, initial encounter

== ENCOUNTER 2019-03-05 19:44 | Emergency (ER) | payer OTHER ==
[2019-03-05] MEDS ORDERED: Fentanyl 100 MCG/2 ML VIAL ONE ×2 (20:07→22:19)
[2019-03-05 20:15] LABS: Bilirubin Negative (Negative); Blood, Urine Large (Negative); Clarity Turbid (Clear); Glucose, Urine (Dipstick) >=1000 mg/dL (Negative); Leukocyte Small (Negative); Nitrite Negative (Negative); Protein, Urine (Dipstick) > or equal to 300 mg/dL (Neg-Trace); Urobilinogen 0.2 mg/dL (Less than 2)
[2019-03-05 20:16] LABS: Bacteria/HPF 4+ HPF (None Seen); Broad Cast None Seen LPF (None Seen); Cellular Cast None Seen LPF (None Seen); Epithelial Cast None Seen LPF (None Seen); Fatty Cast None Seen LPF (None Seen); Mucous/LPF None Seen LPF (<2+); Other Casts None Seen LPF (None Seen); Oval Fat Bodies/HPF None Seen HPF (None Seen); Red Blood Cell Cast None Seen LPF (None Seen); Renal Epithelial None Seen HPF (None Seen); Sperm/HPF None Seen HPF (None Seen); Squamous Epithelial None Seen HPF (0-3); Transitional Epithelial None Seen HPF (None Seen); Trichomonas/HPF None Seen HPF (None Seen); Waxy Cast None Seen LPF (None Seen); White Blood Cell Cast None Seen LPF (None Seen); Yeast-Budding None Seen HPF (None Seen); Yeast-Hyphae None Seen HPF (None Seen)
[2019-03-05 20:19] LABS: Calcium Oxalate Crystals None Seen HPF (None Seen); Triple Phosphate Crystal None Seen HPF (None Seen); Unclassified Crystals 4+ HPF (None Seen)
--- NOTE | 2019-03-05 20:38 | RAD ---
PORTABLE CHEST: 03/05/19 Comparison is made with the immediate prior study of 01/13/17 as well as an older film of 07/09/12. The heart is borderline enlarged but no different than before. There is no congestive change or large pleural effusion. No lobar infiltrate was seen. Mild prominence of the right hilum seems no differen t than prior studies. IMPRESSION: No acute findings. POS: HOME
[2019-03-05 21:28] LABS: #Basophils 0.1 thou/uL (0.0-0.2); #Eosinphils 0.3 thou/uL (0.0-0.7); #Lymphocytes 2.3 thou/uL (1.20-3.40); #Monocytes 0.9 thou/uL (0.11-0.59); %Basophils 0.8 % (0.0-1.0); %Eosinophils 2.2 % (0.0-10.0); %Lymphocytes 18.3 % (21.0-51.0); %Monocytes 7.2 % (0.0-10.0); %Neutrophils 71.4 % (42.0-75.0); Mean Corpuscular HGB CONC 32.1 g/dL (32.0-36.0); Mean Corpuscular Hemoglobin 28.9 pg (27.0-31.0); Mean Corpuscular Volume 90.2 fL (78.0-98.0); Mean Platelet Volume 8.5 fL (7.4-10.4); Platelet Count 210 thou/uL (130-400); RBC Distribution Width 13.4 % (11.5-14.5); Red Blood Cell (RBC) Count 4.48 mill/uL (4.20-5.40); White Blood Cell (WBC) Count 12.6 thou/uL (4.8-10.8)
[2019-03-05 21:44] LABS: ALT (SGPT) 17 U/L (8-55); AST (SGOT) 15 U/L (5-34); Albumin 3.7 g/dL (3.5-5.0); Alkaline Phosphatase 100 U/L (40-110); Anion Gap 17 mmol/L (10-20); BUN (Urea Nitrogen) 12 mg/dL (9.8-20.1); Bilirubin, Total 0.2 mg/dL (0.2-1.2); Calc. Creatinine Clearance 0 mL/min (70-130); Calcium 10.3 mg/dL (7.8-10.44); Carbon Dioxide 30 mmol/L (22-29); Chloride 96 mmol/L (98-107); Estimated GFR-MDRD 82; Globulin 4.2 g/dL (2.4-3.5); Glucose 283 mg/dL (70-105); Potassium 4.1 mmol/L (3.5-5.1); Protein, Total 7.9 g/dL (6.0-8.3); Sodium 139 mmol/L (136-145)
== END 2019-03-05 23:55 | disposition short-term general hospital (02) ==
LOC: BURERS 19:44
DX: N12 Tubulo-interstitial nephritis, not specified as acute or chronic (principal); J44.9 Chronic obstructive pulmonary disease, unspecified; E11.9 Type 2 diabetes mellitus without complications; I11.0 Hypertensive heart disease with heart failure; I50.9 Heart failure, unspecified; I25.2 Old myocardial infarction; F17.210 Nicotine dependence, cigarettes, uncomplicated; Z79.4 Long term (current) use of insulin; Z79.899 Other long term (current) drug therapy
CPT/HCPCS: 71045; 80053; 81003; 81015; 83605; 85025; 87040; 87077; 87086; 87186; 94640; 94760; 96365; 96366; 96375; 96376; J1956; J3010; J7620

== ENCOUNTER 2020-01-20 13:49 | Outpatient (CLI) | payer OTHER ==
--- NOTE | 2020-01-20 20:57 | RAD ---
RIGHT HIP TWO VIEWS: 01/20/20 No fracture, dislocation, or joint space narrowing was seen. The articular surfaces are smooth. A pig tail catheter is seen over the midline of the lower pelvis that may be a ureteral stent or similar ob ject. IMPRESSION: No acute findings in the hip. POS: HOME
== END 2020-01-20 13:50 | disposition home or self-care (01) ==
LOC: BURRAD 13:49
PROVIDERS: ATTEND Nurse Practitioner Family
DX: M25.551 Pain in right hip (principal)

== ENCOUNTER 2020-05-28 11:32 | Emergency (ER) | payer OTHER ==
[2020-05-28 12:20] LABS: #Basophils 0.1 thou/uL (0.0-0.2); #Eosinphils 0.3 thou/uL (0.0-0.7); #Monocytes 0.6 thou/uL (0.11-0.59); #Neutrophils 6.2 thou/uL (1.40-6.50); %Basophils 0.8 % (0.0-1.0); %Eosinophils 2.9 % (0.0-10.0); %Lymphocytes 21.6 % (21.0-51.0); %Monocytes 6.6 % (0.0-10.0); %Neutrophils 68.2 % (42.0-75.0); Hemoglobin 13.4 g/dL (12.0-16.0); Mean Corpuscular HGB CONC 32.6 g/dL (32.0-36.0); Mean Corpuscular Hemoglobin 29.6 pg (27.0-31.0); Mean Corpuscular Volume 90.9 fL (78.0-98.0); Mean Platelet Volume 8.9 fL (7.4-10.4); Platelet Count 269 thou/uL (130-400); RBC Distribution Width 13.8 % (11.5-14.5); Red Blood Cell (RBC) Count 4.52 mill/uL (4.20-5.40); White Blood Cell (WBC) Count 9.1 thou/uL (4.8-10.8)
[2020-05-28 12:30] LABS: Bilirubin Negative (Negative); Blood, Urine Moderate (Negative); Clarity Cloudy (Clear); Glucose, Urine (Dipstick) Negative (Negative); Ketone, Urine Negative (Negative); Leukocyte Large (Negative); Nitrite Positive (Negative); Protein, Urine (Dipstick) 100 mg/dL (Neg-Trace); Specific Gravity, Urine 1.025 (1.005-1.030); Urobilinogen 0.2 mg/dL (Less than 2)
[2020-05-28] MEDS ORDERED: Fentanyl 100 MCG/2 ML VIAL ONE (12:31)
[2020-05-28 12:34] LABS: Bacteria/HPF 4+ HPF (None Seen); Mucous/LPF 1+ LPF (<2+); Squamous Epithelial 0-3 HPF (0-3); WBC/HPF Greater Than 50 HPF (0-3)
[2020-05-28 12:40] LABS: ALT (SGPT) 19 U/L (8-55); AST (SGOT) 14 U/L (5-34); Albumin 3.7 g/dL (3.5-5.0); Alkaline Phosphatase 102 U/L (40-110); Anion Gap 18 mmol/L (10-20); BUN (Urea Nitrogen) 17 mg/dL (9.8-20.1); Bilirubin, Total 0.2 mg/dL (0.2-1.2); Calc. Creatinine Clearance 0 mL/min (70-130); Calcium 9.7 mg/dL (7.8-10.44); Carbon Dioxide 26 mmol/L (22-29); Chloride 98 mmol/L (98-107); Globulin 3.6 g/dL (2.4-3.5); Glucose 221 mg/dL (70-105); Lipase 23 U/L (8-78); Potassium 4.3 mmol/L (3.5-5.1); Protein, Total 7.3 g/dL (6.0-8.3); Sodium 138 mmol/L (136-145)
--- NOTE | 2020-05-28 14:30 | RAD ---
CHEST TWO VIEWS: 05/28/20 Comparison is made with an 04/10/19 study from [facility]. The heart is borderline in size but similar to before. There is no congestive change or pleural effus ion. There is some minimal linear streaking in the right base that I do not see on the prior study. T here was some streaking in the left lower chest before that is not present today. The upper lobes are clear. A Mediport catheter remains in place as before. An epidural stimulator is noted posteriorly. IMPRESSION: Minimal streaking in the right base of uncertain significance. The chest actually is improved in appe arance since the prior study. POS: HOME
--- NOTE | 2020-05-28 14:37 | CT ---
CT ABDOMEN AND PELVIS WITHOUT CONTRAST: 05/28/20 The lung bases show some linear streaking in the right lower lobe and an equivocal area of scarring o r minimal infiltrate in the lingula on the left. The latter is only seen on the top most slice so is not fully evaluated. More than likely these findi ngs are benign in nature, with the linear right lower lobe findings being some minor atelectasis. Nev ertheless, I would note that I have seen a few patients present with some minimal findings just like this and upper abdominal pain, and then develop respiratory symptoms associated with COVID several da ys later. While probably not the case here, that should be kept in mind, depending upon her progressi on of symptoms. The liver, spleen, pancreas, adrenal glands, and abdominal aorta showed no acute findings within the limitations of a noncontrast study. The gallbladder is mildly generous in size measuring about 9 cm i n length, but it was on the prior study as well. No wall thickening or inflammatory change is seen ar ound it. There is no hydronephrosis in the right kidney as before. A ureteral stent is present on the left with good decompression of the left kidney. The bowel shows no dilation, wall thickening, or inflammatory change in or around it. The appendix wa s identified and appears normal. There is no free air or free fluid. No GI tract findings in the uppe r abdomen were appreciated to explain epigastric pain. CT of the pelvis shows no pelvic masses, fluid collections, or inflammatory changes. The patient's ne phrostomy tube and left ureteral stent is noted, as well as epidural stimulator leads in the spine. IMPRESSION: 1. No acute abdominal or pelvic findings to explain epigastric pain. 2. Gallbladder is somewhat long but not really different in length than the prior study. Probably not significant. 3. No evidence of hydronephrosis. Left ureteral stent/nephrostomy appears to be working. 4. Linear atelectasis versus early infiltrate in the right lower lobe. Equivocal patch in the lingula . See comments above. Findings discussed with Dr. Spaulding at 1404 on 05/28/20. POS: HOME
[2020-05-29 18:25] LABS: SARS-CoV-2 MS2 Positive; SARS-CoV-2 N Gene Negative; SARS-CoV-2 S Gene Negative; SARS-CoV-2 by NAA Not Detected (NotDetected); SARS-CoV-2 orf1ab Negative
== END 2020-05-28 14:15 | disposition home or self-care (01) ==
LOC: BURERS 11:32
DX: R10.13 Epigastric pain (principal); R11.0 Nausea; Z20.828 Contact with and (suspected) exposure to other viral communicable diseases; I25.2 Old myocardial infarction; I50.9 Heart failure, unspecified; E11.9 Type 2 diabetes mellitus without complications; I11.0 Hypertensive heart disease with heart failure; M06.9 Rheumatoid arthritis, unspecified; J44.9 Chronic obstructive pulmonary disease, unspecified; E66.9 Obesity, unspecified; F17.210 Nicotine dependence, cigarettes, uncomplicated; Z86.73 Personal history of transient ischemic attack (TIA), and cerebral infarction without residual deficits; Z79.899 Other long term (current) drug therapy
CPT/HCPCS: 36415; 71046; 74176; 80053; 81003; 81015; 83605; 83690; 84484; 85025; 87040; 87077; 87086; 87186; 87635; 93005; 94760; 96374; J3010; U0003

== ENCOUNTER 2020-06-30 12:13 | Emergency (ER) | payer OTHER ==
[2020-06-30] MEDS ORDERED: HYDROcodone/Acetaminophen 10/325 mg Tablet ONE (13:06)
== END 2020-06-30 13:30 | disposition home or self-care (01) ==
LOC: BURERS 12:13
DX: S63.501A Unspecified sprain of right wrist, initial encounter (principal); S70.00XA Contusion of unspecified hip, initial encounter; M47.816 Spondylosis without myelopathy or radiculopathy, lumbar region; I11.0 Hypertensive heart disease with heart failure; I50.9 Heart failure, unspecified; I25.10 Atherosclerotic heart disease of native coronary artery without angina pectoris; I25.2 Old myocardial infarction; M06.9 Rheumatoid arthritis, unspecified; E66.9 Obesity, unspecified; J44.9 Chronic obstructive pulmonary disease, unspecified; Z86.73 Personal history of transient ischemic attack (TIA), and cerebral infarction without residual deficits; F17.210 Nicotine dependence, cigarettes, uncomplicated; Z79.899 Other long term (current) drug therapy; W18.30XA Fall on same level, unspecified, initial encounter
CPT/HCPCS: 72131

== ENCOUNTER 2020-12-13 11:51 | Outpatient (CLI) | payer OTHER | END 2020-12-13 11:52 | disposition home or self-care (01) | LOC: BURRAD 11:51 | PROVIDERS: ATTEND Pain Medicine Interventional Pain Medicine | DX: M25.551 Pain in right hip (principal); M16.12 Unilateral primary osteoarthritis, left hip ==

== ENCOUNTER 2021-02-08 08:27 | Outpatient (CLI) | payer OTHER | END 2021-02-08 08:28 | disposition home or self-care (01) | LOC: BURCT 08:27 | PROVIDERS: ATTEND Nurse Practitioner Family | DX: M96.1 Postlaminectomy syndrome, not elsewhere classified (principal) | CPT/HCPCS: 72131 ==

== ENCOUNTER 2021-09-29 08:50 | Emergency (ER) | payer OTHER ==
[2021-09-29 10:15] LABS: #Basophils 0.1 thou/uL (0.0-0.2); #Eosinphils 0.1 thou/uL (0.0-0.7); #Lymphocytes 1.2 thou/uL (1.20-3.40); #Neutrophils 8.8 thou/uL (1.40-6.50); %Basophils 0.6 % (0.0-1.0); %Eosinophils 0.6 % (0.0-10.0); %Lymphocytes 10.6 % (21.0-51.0); %Monocytes 8.6 % (0.0-10.0); %Neutrophils 79.6 % (42.0-75.0); Hemoglobin 13.7 g/dL (12.0-16.0); Mean Corpuscular Hemoglobin 29.1 pg (27.0-31.0); Mean Corpuscular Volume 90.9 fL (78.0-98.0); Mean Platelet Volume 9.1 fL (7.4-10.4); Platelet Count 202 thou/uL (130-400); RBC Distribution Width 14.5 % (11.5-14.5)
[2021-09-29 10:38] LABS: ALT (SGPT) 15 U/L (8-55); AST (SGOT) 18 U/L (5-34); Albumin 3.3 g/dL (3.5-5.0); Alkaline Phosphatase 104 U/L (40-110); Anion Gap 18 mmol/L (10-20); BUN (Urea Nitrogen) 26 mg/dL (9.8-20.1); Bilirubin, Total 0.5 mg/dL (0.2-1.2); Calc. Creatinine Clearance 0 mL/min (70-130); Calcium 9.4 mg/dL (7.8-10.44); Carbon Dioxide 26 mmol/L (22-29); Chloride 100 mmol/L (98-107); Glucose 173 mg/dL (70-105); Protein, Total 7.3 g/dL (6.0-8.3); Sodium 140 mmol/L (136-145)
[2021-09-29] MEDS ORDERED: Morphine 4 MG/ML VIAL ONE (10:51)
[2021-09-29 11:35] LABS: Clarity Cloudy (Clear)
[2021-09-29 11:41] LABS: Leukocyte Unable to Interpret (Negative); Nitrite Unable to Interpret (Negative)
[2021-09-29 11:42] LABS: Bilirubin Unable to Interpret (Negative); Blood, Urine Unable to Interpret (Negative); Glucose, Urine (Dipstick) Unable to Interpret mg/dL (Negative); Ketone, Urine Unable to Interpret mg/dL (Negative); Protein, Urine (Dipstick) Unable to Interpret mg/dL (Neg-Trace)
[2021-09-29 11:45] LABS: WBC/HPF 21-50 HPF (0-3)
[2021-09-29 11:46] LABS: Bacteria/HPF 3+ HPF (None Seen)
[2021-09-29] MEDS ORDERED: Sodium Chloride 0.9% 100 ML ONE (12:24)
[2021-09-29] MEDS ORDERED: cefTRIAXone\\ROCEPHIN 1 GM VIAL ONE (12:24)
== END 2021-09-29 13:03 | disposition home or self-care (01) ==
LOC: BURERS 08:50
DX: M25.551 Pain in right hip (principal); M25.561 Pain in right knee; N39.0 Urinary tract infection, site not specified; I11.0 Hypertensive heart disease with heart failure; I50.9 Heart failure, unspecified; I25.2 Old myocardial infarction; E11.9 Type 2 diabetes mellitus without complications; M19.90 Unspecified osteoarthritis, unspecified site; J44.9 Chronic obstructive pulmonary disease, unspecified; M06.9 Rheumatoid arthritis, unspecified; F17.210 Nicotine dependence, cigarettes, uncomplicated; E66.9 Obesity, unspecified; W19.XXXA Unspecified fall, initial encounter; Z68.45 Body mass index [BMI] 70 or greater, adult; Z86.73 Personal history of transient ischemic attack (TIA), and cerebral infarction without residual deficits
CPT/HCPCS: 36415; 71045; 80053; 81003; 81015; 82550; 83605; 83880; 84484; 85025; 87086; 93005; 96365; 96375; J0696; J2270; J3490

== ENCOUNTER 2021-10-13 12:51 | Emergency (ER) | payer OTHER ==
[2021-10-13 13:24] LABS: #Basophils 0.1 thou/uL (0.0-0.2); #Eosinphils 0.2 thou/uL (0.0-0.7); #Lymphocytes 1.9 thou/uL (1.20-3.40); #Monocytes 0.6 thou/uL (0.11-0.59); #Neutrophils 6.5 thou/uL (1.40-6.50); %Basophils 0.9 % (0.0-1.0); %Eosinophils 1.7 % (0.0-10.0); %Lymphocytes 20.6 % (21.0-51.0); %Monocytes 6.3 % (0.0-10.0); %Neutrophils 70.5 % (42.0-75.0); Hemoglobin 13.6 g/dL (12.0-16.0); Mean Corpuscular HGB CONC 31.5 g/dL (32.0-36.0); Platelet Count 242 thou/uL (130-400); RBC Distribution Width 15.3 % (11.5-14.5); Red Blood Cell (RBC) Count 4.71 mill/uL (4.20-5.40); White Blood Cell (WBC) Count 9.2 thou/uL (4.8-10.8)
[2021-10-13 13:39] LABS: ALT (SGPT) 11 U/L (8-55); AST (SGOT) 12 U/L (5-34); Albumin 3.6 g/dL (3.5-5.0); Alkaline Phosphatase 70 U/L (40-110); Anion Gap 16 mmol/L (10-20); BUN (Urea Nitrogen) 23 mg/dL (9.8-20.1); Bilirubin, Total 0.4 mg/dL (0.2-1.2); Calc. Creatinine Clearance 0 mL/min (70-130); Calcium 9.7 mg/dL (7.8-10.44); Carbon Dioxide 29 mmol/L (22-29); Chloride 103 mmol/L (98-107); Globulin 3.6 g/dL (2.4-3.5); Glucose 275 mg/dL (70-105); Potassium 4.8 mmol/L (3.5-5.1); Protein, Total 7.2 g/dL (6.0-8.3); Sodium 143 mmol/L (136-145)
[2021-10-13] MEDS ORDERED: HYDROcodone/Acetaminophen 10/325 mg Tablet ONE (14:45)
== END 2021-10-13 14:49 | disposition home or self-care (01) ==
LOC: BURERS 12:51
DX: S09.90XA Unspecified injury of head, initial encounter (principal); S83.91XA Sprain of unspecified site of right knee, initial encounter; S63.501A Unspecified sprain of right wrist, initial encounter; I11.0 Hypertensive heart disease with heart failure; I50.9 Heart failure, unspecified; E11.9 Type 2 diabetes mellitus without complications; J44.9 Chronic obstructive pulmonary disease, unspecified; I25.2 Old myocardial infarction; M19.90 Unspecified osteoarthritis, unspecified site; M06.9 Rheumatoid arthritis, unspecified; E66.9 Obesity, unspecified; F17.210 Nicotine dependence, cigarettes, uncomplicated; W10.9XXA Fall (on) (from) unspecified stairs and steps, initial encounter
CPT/HCPCS: 36415; 70450; 80053; 85025

== ENCOUNTER 2022-08-03 13:14 | Outpatient (CLI) | payer OTHER | END 2022-08-03 13:15 | disposition home or self-care (01) | LOC: BURCT 13:14 | PROVIDERS: ATTEND Pain Medicine Interventional Pain Medicine | DX: M47.812 Spondylosis without myelopathy or radiculopathy, cervical region (principal) | CPT/HCPCS: 72125 ==

== ENCOUNTER 2023-06-21 15:44 | Emergency (ER) | payer OTHER ==
[2023-06-21 16:29] LABS: #Basophils 0.1 thou/uL (0.0-0.2); #Eosinphils 0.1 thou/uL (0.0-0.7); #Lymphocytes 2.1 thou/uL (1.20-3.40); #Neutrophils 8.5 thou/uL (1.40-6.50); %Basophils 1.2 % (0.0-1.0); %Eosinophils 1.2 % (0.0-10.0); %Lymphocytes 17.7 % (21.0-51.0); %Monocytes 8.4 % (0.0-10.0); %Neutrophils 71.6 % (42.0-75.0); Hematocrit 42.2 % (36.0-47.0); Hemoglobin 13.3 g/dL (12.0-16.0); Mean Corpuscular HGB CONC 31.5 g/dL (32.0-36.0); Mean Corpuscular Hemoglobin 28.7 pg (27.0-31.0); Mean Corpuscular Volume 91.2 fl (78.0-98.0); Platelet Count 320 10x3/uL (130-400); Red Blood Cell (RBC) Count 4.63 mill/uL (4.20-5.40); White Blood Cell (WBC) Count 11.9 10x3/uL (4.8-10.8)
[2023-06-21] MEDS ORDERED: Morphine 4 MG/ML VIAL ONE ×2 (16:39→19:38)
[2023-06-21] MEDS ORDERED: Albuterol 2.5 MG (0.5 mL) NEB ONE (16:44)
[2023-06-21] MEDS ORDERED: Ipratropium Bromide 2.5 ml Neb ONE (16:44)
[2023-06-21] MEDS ORDERED: methylPREDNISolone Sod Succ/PF 125 MG/2 ML VIAL ONE (16:45)
[2023-06-21] MEDS ORDERED: Doxycycline 100 MG CAP ONE (16:46)
[2023-06-21 16:48] LABS: Troponin I 0.057 ng/mL (< 0.028)
[2023-06-21 16:49] LABS: ALT (SGPT) 12 U/L (8-55); AST (SGOT) 15 U/L (5-34); Albumin 3.1 g/dL (3.5-5.0); Alkaline Phosphatase 85 U/L (40-110); Anion Gap 19 mmol/L (10-20); BUN (Urea Nitrogen) 37 mg/dL (9.8-20.1); Bilirubin, Total 0.2 mg/dL (0.2-1.2); Calc. Creatinine Clearance 0 mL/min (70-130); Calcium 9.5 mg/dL (7.8-10.44); Carbon Dioxide 30 mmol/L (22-29); Chloride 94 mmol/L (98-107); Estimated GFR 19; Globulin 4.7 g/dL (2.4-3.5); Glucose 177 mg/dL (70-105); Potassium 4.2 mmol/L (3.5-5.1); Protein, Total 7.8 g/dL (6.0-8.3); Sodium 139 mmol/L (136-145)
[2023-06-21 18:01] LABS: Base Excess-Venous 8.1 mmol/L (-2.0 to 3.0); Bicarbonate (HCO3v) 35.8 mmol/L (22.0-28.0); CO2 Tension (PvCO2) 59.6 mmHg (42.0-51.0); Chloride 96 mmol/L (98-107); Hemoglobin - Calc 16.6 g/dL (12.0-16.0); Potassium 3.9 mmol/L (3.5-5.1); Sodium 140 mmol/L (138-145); T. Carbon Dioxide 37.6 mmol/L (22.0-28.0); vO2 Saturation-calc 49.4 % (60.0-85.0)
[2023-06-21] MEDS ORDERED: Aspirin Chewable 81 MG TAB ONE (18:04)
== END 2023-06-21 19:40 | disposition short-term general hospital (02) ==
LOC: BURERS 15:44
DX: N17.9 Acute kidney failure, unspecified (principal); J44.1 Chronic obstructive pulmonary disease with (acute) exacerbation; I11.0 Hypertensive heart disease with heart failure; I50.9 Heart failure, unspecified; R09.02 Hypoxemia; I25.2 Old myocardial infarction; E11.9 Type 2 diabetes mellitus without complications; E66.9 Obesity, unspecified; F17.210 Nicotine dependence, cigarettes, uncomplicated; Z86.73 Personal history of transient ischemic attack (TIA), and cerebral infarction without residual deficits; Z79.84 Long term (current) use of oral hypoglycemic drugs; Z79.899 Other long term (current) drug therapy
CPT/HCPCS: 36415; 71045; 80053; 82330; 82803; 83880; 84484; 85025; 93005; 96374; 96375; 96376; J2270; J2930; J7611

== ENCOUNTER 2023-07-13 11:38 | Emergency (ER) | payer OTHER ==
[2023-07-13] MEDS ORDERED: Ipratropium/Albuterol 3 ML NEB ONE (12:07)
[2023-07-13 12:14] LABS: #Basophils 0.1 thou/uL (0.0-0.2); #Eosinphils 0.2 thou/uL (0.0-0.7); #Lymphocytes 1.6 thou/uL (1.20-3.40); #Monocytes 0.7 thou/uL (0.11-0.59); #Neutrophils 6.5 thou/uL (1.40-6.50); %Eosinophils 2.1 % (0.0-10.0); %Lymphocytes 17.6 % (21.0-51.0); %Monocytes 7.4 % (0.0-10.0); %Neutrophils 71.8 % (42.0-75.0); Hematocrit 36.3 % (36.0-47.0); Hemoglobin 11.6 g/dL (12.0-16.0); Mean Corpuscular Hemoglobin 28.6 pg (27.0-31.0); Mean Corpuscular Volume 89.4 fl (78.0-98.0); Mean Platelet Volume 8.1 fL (7.4-10.4); Platelet Count 241 10x3/uL (130-400); RBC Distribution Width 15.1 % (11.5-14.5); Red Blood Cell (RBC) Count 4.06 mill/uL (4.20-5.40)
[2023-07-13] MEDS ORDERED: Morphine 4 MG/ML VIAL ONE ×2 (12:20→16:09)
[2023-07-13 12:27] LABS: Anion Gap 14 mmol/L (10-20); BUN (Urea Nitrogen) 29 mg/dL (9.8-20.1); Calc. Creatinine Clearance 0 mL/min (70-130); Carbon Dioxide 26 mmol/L (22-29); Chloride 106 mmol/L (98-107); Estimated GFR 64; Glucose 122 mg/dL (70-105); Magnesium 1.9 mg/dL (1.6-2.6); Potassium 4.9 mmol/L (3.5-5.1); Sodium 141 mmol/L (136-145)
[2023-07-13 12:41] LABS: Critical Call Chem Troponin I NUR.LL4 @ 1235
[2023-07-13] MEDS ORDERED: Heparin 25,000 units/D5W 500 ML ONE (13:18)
[2023-07-13] MEDS ORDERED: Heparin 10,000 UNITS/ 10 ML VIAL ONE (13:18)
== END 2023-07-13 17:10 | disposition short-term general hospital (02) ==
LOC: BURERS 11:38
DX: I21.4 Non-ST elevation (NSTEMI) myocardial infarction (principal); I11.0 Hypertensive heart disease with heart failure; I50.33 Acute on chronic diastolic (congestive) heart failure; J44.9 Chronic obstructive pulmonary disease, unspecified; E11.9 Type 2 diabetes mellitus without complications; I25.2 Old myocardial infarction; I25.10 Atherosclerotic heart disease of native coronary artery without angina pectoris; E66.01 Morbid (severe) obesity due to excess calories; F17.210 Nicotine dependence, cigarettes, uncomplicated; Z86.73 Personal history of transient ischemic attack (TIA), and cerebral infarction without residual deficits; Z79.84 Long term (current) use of oral hypoglycemic drugs; Z79.899 Other long term (current) drug therapy
CPT/HCPCS: 36416; 71046; 80048; 83735; 83880; 84484; 85025; 85379; 85730; 96374; 96375; 96376; J1644; J2270; J7620

== ENCOUNTER 2024-04-07 14:41 | Outpatient (CLI) | payer OTHER | END 2024-04-07 14:42 | disposition home or self-care (01) | LOC: BURRAD 14:41 | PROVIDERS: ATTEND Physician Assistant | DX: R05.1 Acute cough (principal); R50.9 Fever, unspecified | CPT/HCPCS: 71046 ==

== ENCOUNTER 2024-05-13 20:13 | Emergency (ER) | payer OTHER ==
[2024-05-13 20:48] LABS: #Basophils 0.1 thou/uL (0.0-0.2); #Eosinophils 0.2 thou/uL (0.0-0.7); #Lymphocytes 1.8 thou/uL (1.20-3.40); #Monocytes 0.6 thou/uL (0.11-0.59); #Neutrophils 5.5 thou/uL (1.40-6.50); %Basophils 0.6 % (0.0-1.0); %Eosinophils 2.1 % (0.0-10.0); %Lymphocytes 21.8 % (21.0-51.0); %Monocytes 7.4 % (0.0-10.0); %Neutrophils 68.1 % (42.0-75.0); Hematocrit 34.7 % (36.0-47.0); Mean Corpuscular HGB CONC 31.8 g/dL (32.0-36.0); Mean Corpuscular Hemoglobin 28.2 pg (27.0-31.0); Mean Corpuscular Volume 88.8 fl (78.0-98.0); Platelet Count 188 10x3/uL (130-400); RBC Distribution Width 13.8 % (11.5-14.5); White Blood Cell (WBC) Count 8.1 10x3/uL (4.8-10.8)
[2024-05-13 21:06] LABS: ALT (SGPT) 10 U/L (8-55); AST (SGOT) 14 U/L (5-34); Albumin 3.3 g/dL (3.5-5.0); Alkaline Phosphatase 68 U/L (40-110); Anion Gap 16 mmol/L (10-20); BUN (Urea Nitrogen) 59 mg/dL (9.8-20.1); Bilirubin, Total 0.3 mg/dL (0.2-1.2); Calc. Creatinine Clearance 0 mL/min (70-130); Calcium 9.6 mg/dL (7.8-10.44); Carbon Dioxide 30 mmol/L (22-29); Chloride 97 mmol/L (98-107); Estimated GFR 22; Globulin 3.6 g/dL (2.4-3.5); Glucose 170 mg/dL (70-105); Potassium 4.4 mmol/L (3.5-5.1); Protein, Total 6.9 g/dL (6.0-8.3); Sodium 139 mmol/L (136-145)
[2024-05-13 21:07] LABS: Troponin I Less than 0.010 ng/mL (< 0.028)
== END 2024-05-14 00:59 | disposition home or self-care (01) ==
LOC: BURERS 20:13
DX: R55 Syncope and collapse (principal); E86.0 Dehydration; R60.0 Localized edema; I25.2 Old myocardial infarction; E11.9 Type 2 diabetes mellitus without complications; I11.0 Hypertensive heart disease with heart failure; I50.9 Heart failure, unspecified; J44.9 Chronic obstructive pulmonary disease, unspecified; I25.10 Atherosclerotic heart disease of native coronary artery without angina pectoris; F17.210 Nicotine dependence, cigarettes, uncomplicated; W17.82XA Fall from (out of) grocery cart, initial encounter; Z79.84 Long term (current) use of oral hypoglycemic drugs; Z79.4 Long term (current) use of insulin; Z79.82 Long term (current) use of aspirin; Z79.899 Other long term (current) drug therapy
CPT/HCPCS: 36415; 70450; 71045; 72125; 80053; 83880; 84484; 85025; 93005; 94760; 96360

== ENCOUNTER 2024-06-13 15:05 | Emergency (ER) | payer OTHER | END 2024-06-13 16:49 | disposition home or self-care (01) | LOC: BURERS 15:05 | DX: S05.12XA Contusion of eyeball and orbital tissues, left eye, initial encounter (principal); S09.90XA Unspecified injury of head, initial encounter; J44.9 Chronic obstructive pulmonary disease, unspecified; I11.0 Hypertensive heart disease with heart failure; I50.9 Heart failure, unspecified; E11.9 Type 2 diabetes mellitus without complications; I25.2 Old myocardial infarction; W19.XXXA Unspecified fall, initial encounter; Z95.0 Presence of cardiac pacemaker; Z79.84 Long term (current) use of oral hypoglycemic drugs; Z79.82 Long term (current) use of aspirin; Z79.899 Other long term (current) drug therapy | CPT/HCPCS: 70450; 70486 ==

== ENCOUNTER 2025-01-01 14:05 | Emergency (ER) | payer MEDICAID ==
[2025-01-01 14:50] LABS: #Basophils 0.1 thou/uL (0.0-0.2); #Eosinophils 0.5 thou/uL (0.0-0.7); #Lymphocytes 1.3 thou/uL (1.20-3.40); #Monocytes 0.7 thou/uL (0.11-0.59); #Neutrophils 5.3 thou/uL (1.40-6.50); %Basophils 1.3 % (0.0-1.0); %Eosinophils 6.0 % (0.0-10.0); %Lymphocytes 15.8 % (21.0-51.0); %Monocytes 8.9 % (0.0-10.0); %Neutrophils 67.9 % (42.0-75.0); Hematocrit 28.8 % (36.0-47.0); Hemoglobin 9.3 g/dL (12.0-16.0); Mean Corpuscular Hemoglobin 27.7 pg (27.0-31.0); Mean Corpuscular Volume 85.8 fl (78.0-98.0); Platelet Count 173 10x3/uL (130-400); Red Blood Cell (RBC) Count 3.35 mill/uL (4.20-5.40); White Blood Cell (WBC) Count 7.9 10x3/uL (4.8-10.8)
[2025-01-01 15:09] LABS: ALT (SGPT) 8 U/L (Less than 34); AST (SGOT) 15 U/L (11-34); Albumin 2.9 g/dL (3.1-4.5); Alkaline Phosphatase 65 U/L (40-110); Anion Gap 14 mmol/L (10-20); BUN (Urea Nitrogen) 29 mg/dL (9.8-20.1); Bilirubin, Total 0.2 mg/dL (0.3-1.2); Calc. Creatinine Clearance 0 mL/min (70-130); Calcium 8.8 mg/dL (7.8-10.44); Carbon Dioxide 22 mmol/L (22-29); Chloride 110 mmol/L (98-107); Globulin 3.4 g/dL (2.4-3.5); Glucose 75 mg/dL (70-105); Potassium 4.8 mmol/L (3.5-5.1); Sodium 141 mmol/L (136-145)
[2025-01-01 15:10] LABS: Troponin I 0.012 ng/mL (< 0.028)
[2025-01-01 16:32] LABS: Bicarbonate (HCO3v) 28.0 mmol/L (22.0-28.0); CO2 Tension (PvCO2) 61.2 mmHg (42.0-51.0); Calcium, Ionized 1.36 mmol/L (1.15-1.33); Chloride 106 mmol/L (98-107); Hemoglobin - Calc 11.4 g/dL (12.0-16.0); Potassium 5.1 mmol/L (3.5-5.1); Sodium 144 mmol/L (138-145); T. Carbon Dioxide 29.8 mmol/L (22.0-28.0); vO2 Saturation-calc 78.7 % (60.0-85.0)
== END 2025-01-01 20:07 | disposition short-term general hospital (02) ==
LOC: BURERS 14:05
DX: R06.89 Other abnormalities of breathing (principal); I11.0 Hypertensive heart disease with heart failure; I50.9 Heart failure, unspecified; I25.2 Old myocardial infarction; E11.40 Type 2 diabetes mellitus with diabetic neuropathy, unspecified; E66.9 Obesity, unspecified; F17.290 Nicotine dependence, other tobacco product, uncomplicated; Z86.73 Personal history of transient ischemic attack (TIA), and cerebral infarction without residual deficits; Z95.0 Presence of cardiac pacemaker; Z79.84 Long term (current) use of oral hypoglycemic drugs; Z79.82 Long term (current) use of aspirin; Z79.899 Other long term (current) drug therapy
CPT/HCPCS: 36415; 36416; 71045; 80053; 82330; 82803; 83880; 84484; 85025; 93005; 96374; 96375; J2270; J2919; J7620